=== PATIENT | female | born 1970 | race Caucasian/White ===

== ENCOUNTER 2023-08-19 14:33 | Emergency (ER) | payer OTHER ==
[~2023-08-19] VITALS: Ht 162.6 cm; Wt 69.9 kg
[2023-08-19 15:14] LABS: BASOPHILS # (AUTO) 0.01 K/uL (0.00-0.20); BASOPHILS % (AUTO) 0.2 % (0.0-5.0); EOSINOPHILS # (AUTO) 0.07 K/uL (0.00-0.70); EOSINOPHILS % (AUTO) 1.7 % (0.0-8.0); HEMATOCRIT 36.2 % (36-48); IMMATURE GRANULOCYTE ABSOLUTE 0.01 K/uL (0-1); LYMPHOCYTES % (AUTO) 25.2 % (21.0-51.0); MEAN CORPUSCULAR HEMOGLOBIN 30.3 pg (27.0-33.0); MEAN CORPUSCULAR HGB CONC 33.7 g/dL (32.0-36.0); MEAN CORPUSCULAR VOLUME 89.8 fL (79-99); MONOCYTES # (AUTO) 0.1 K/uL (0.1-1.0); MONOCYTES % (AUTO) 3.2 % (3.0-13.0); NEUTROPHILS # (AUTO) 2.8 K/uL (1.8-7.7); NEUTROPHILS % (AUTO) 69.5 % (40.0-77.0); NUCLEATED RED BLOOD CELLS 0.5 % (0.0-0.19); PLATELET COUNT (AUTO) 230 K/uL (130-400); RED BLOOD CELL COUNT(AUTO) 4.03 MIL/uL (4.00-5.50); RED CELL DISTRIBUTION WIDTH 16.4 % (11.0-15.5); WHITE BLOOD COUNT (AUTO) 4.1 K/uL (4.8-10.8)
[2023-08-19 15:23] LABS: CREATININE 0.9 mg/dL (0.5-1.0); POTASSIUM 3.9 mmol/L (3.5-5.1)
[2023-08-19 15:33] LABS: ALBUMIN 3.4 g/dL (3.5-5.0); BILIRUBIN,DIRECT 0.1 mg/dL (0.0-0.3); BILIRUBIN,TOTAL 0.4 mg/dL (0.2-1.0); TOTAL PROTEIN, SERUM 6.7 g/dL (6.0-8.3)
[2023-08-19] MEDS: 0.9%NACL 1000ML 1,000 ML IV ONE (16:31)
[2023-08-19] MEDS: ONDANSETRON 4MG INJ IVP ONE (16:32)
[2023-08-19] MEDS: MORPHINE 4 MG SYG IVP ONE (16:33)
[2023-08-19] MEDS: 0.9% NACL 500ML IV.SOLN 500 ML IV ONE (18:13)
[2023-08-19] MEDS: MORPHINE 2 MG SYG IVP ONE (18:13)
[2023-08-19] MEDS ORDERED: DICY20TA2 PO (18:51)
[2023-08-19 18:58] VITALS: BP 118/67; PULSE 76; RESP 16; O2SAT 99
== END 2023-08-19 19:15 | disposition home or self-care (01) ==
LOC: EDH 14:33
DX: T78.8XXA Other adverse effects, not elsewhere classified, initial encounter (principal); R10.9 Unspecified abdominal pain; I10 Essential (primary) hypertension; Z90.710 Acquired absence of both cervix and uterus; Z98.890 Other specified postprocedural states; Z88.8 Allergy status to other drugs, medicaments and biological substances; X58.XXXA Exposure to other specified factors, initial encounter
CPT/HCPCS: 99285; 74176; 96374; 96375; 80076; 84484; 80048; 83690; 85025; 36415; 96376; 93005; J7040; J2270 ×2; J7030; J2405